=== PATIENT | female | born 1955 | race Caucasian/White ===

== ENCOUNTER 2017-06-24 14:26 | Emergency (ER) | payer BC ==
[~2017-06-24] VITALS: Ht 160 cm; Wt 90.7 kg
[~2017-06-24 14:26] MED LIST: ATENOLOL25 MG PO; AZITHROMYCIN250 MG PO; BENICAR HCT 401 EACH PO; BENICAR20 MG PO; HYDROCODON-ACE1 EA10 PO; NORCO 5-325 TA1 EACH PO; PERCOCET 5-3251 EACH PO; PREDNISONE20 MG PO; PRILOSEC20 MG PO; PROAIR HFA8.5 GM INH; PROTONIX40 MG PO; SYNTHROID150 MCG PO; ULTRAM50 MG PO
== END 2017-06-24 14:47 | disposition home or self-care (01) ==
LOC: ED 14:26
DX: Z00.8 Encounter for other general examination (principal)

== ENCOUNTER 2018-05-25 18:49 | Emergency (ER) | payer BC ==
[~2018-05-25] VITALS: Ht 160 cm; Wt 90.7 kg
[2018-05-25] MEDS ORDERED: IRBESARTAN-HCT1 EACH PO (19:12)
[2018-05-25] MEDS ORDERED: PYRIDIUM200 MG PO (20:22)
[2018-05-25] MEDS ORDERED: MACROBID 100 M100 MG PO (20:22)
== END 2018-05-25 20:29 | disposition home or self-care (01) ==
LOC: ED 18:49
DX: N39.0 Urinary tract infection, site not specified (principal); I10 Essential (primary) hypertension; E03.9 Hypothyroidism, unspecified; F17.200 Nicotine dependence, unspecified, uncomplicated; Z88.2 Allergy status to sulfonamides; Z88.5 Allergy status to narcotic agent; Z88.0 Allergy status to penicillin; Z88.8 Allergy status to other drugs, medicaments and biological substances; Z79.899 Other long term (current) drug therapy
CPT/HCPCS: 81001; 99283

== ENCOUNTER 2018-05-28 20:07 | Observation (INO) | payer BC ==
[~2018-05-28] VITALS: Ht 160 cm; Wt 94.8 kg
[~2018-05-28 20:07] MED LIST changes: +IRBESARTAN-HCT1 EACH PO; +MACROBID 100 M100 MG PO; +PYRIDIUM200 MG PO; -SYNTHROID150 MCG PO; +SYNTHROID200 MCG PO
--- OUTSIDE RECORDS SUMMARY | 2018-05-28 20:10 | XMS ---
PreManage Notification: MANINDER MONTES Security [employer] Events No recent Security Events currently on file CRITERIA MET - [facility] - 2 Visits in 30 Days CARE PROVIDERS BEVERLY GUTIÉRREZ Physician External Auditor Current PHONE: Unknown MARITZA CHEN [facility] Current PHONE: Unknown Maritza Chen Treatment Current [place] PHONE: Unknown Mauricio has no Care Guidelines for this patient. Daniela VISIT COUNT (12 MO.) 3 NICK Jansen TOTAL 3 NOTE: Visits indicate total known visits. ED/UCC VISIT TRACKING (12 MO.) 05/28/2018 20:08 NICK Mueller [place] TYPE: Emergency COMPLAINT: - SOB 05/25/2018 18:49 N[facility] [place] TYPE: Emergency COMPLAINT: - POSS UTI DIAGNOSES: - Urinary tract infection, site not specified - Essential (primary) hypertension - Allergy status to sulfonamides status - Nicotine dependence, unspecified, uncomplicated - Hypothyroidism, unspecified - Other terminal operations manager (current) drug therapy - Dysuria - Allergy status to other drugs, medicaments and biological substances status - Allergy status to narcotic agent status - Allergy status to penicillin 06/24/2017 14:26 N[facility] [place] TYPE: Emergency COMPLAINT: - L EAR ISSUE DIAGNOSES: - Encounter for other general examination INPATIENT VISIT TRACKING (12 MO.) No inpatient visits to display in this time frame [email or web address]
[2018-05-28] MEDS ORDERED: FLOVENT HFA12 GM INH (20:22)
--- NOTE | 2018-05-28 23:30 | NUR ---
pt ARRIVED ON FLOOR VIA STRETCHER. AMBULATED TO BED. VSS. FAMILY AT BEDSIDE. ASSESSMENT DONE. TEA PROVIDED. AMBULATED TO TOILET AND BACK TO BED. CALL LIGHT WITHIN REACH. NO FURTHER REQUESTS AT THIS TIME.
--- NOTE | 2018-05-29 05:22 | NUR ---
pt RESTED MOST OF SHIFT. ON 2L O2 VIA NC. SBA. INCONT, PAD IN PLACE. IV SL. TOLERATING CARDIAC DIET. SCDS. USES CALL LIGHT APPROPRIATELY.
--- NOTE | 2018-05-29 08:35 | NUR ---
MORNING ASSESSMENT DONE. PATIENT DENIES PAIN OR NAUSEA. PATIENT AMBULATES INDEPENDANTLY TO BATHROOM TO WASH DENTURES. PATIENT UP TO CHAIR FOR BREAKFAST. 2L OXYGEN ON, PATIENT HAS OCCASIONAL PRODUCTIVE COUGH, UPPER EXPIRATORY WHEEZE, LUNG BASES REMAIN DIM.
--- NOTE | 2018-05-29 10:10 | NUR ---
PATIENT ATE 20% OF BREAKFAST, ENDORSES HAVING A POOR APPETITE.
--- NOTE | 2018-05-29 11:13 | NUR ---
PATIENT PLACED ON CONTINUOUS PULSE OX, LONGER O2 TUBING PROVIDED. ENCOURAGED PATIENT TO LEAVE OXYGEN ON.
[2018-05-29] MEDS ORDERED: ATORVASTATIN CA80 MG PO (12:16)
[2018-05-29] MEDS ORDERED: ATENOLOL50 MG PO (12:18)
--- NOTE | 2018-05-29 12:26 | NUR ---
PATIENT UP TO CHAIR, VISITING WITH FAMILY
--- NOTE | 2018-05-29 13:23 | EKG ---
[facility] [address] [facility] [place] [address] Signed Sinus rhythm with occasional premature ventricular complexes Otherwise normal ECG No previous ECGs available Confirmed by NAZIA VILLALOBOS MD ([id number]) on 05/29/2018 1:23:21 PM Electronically Signed By: NAZIA VILLALOBOS MD 05/29/18 1323 PATIENT NAME: MANINDER MONTES Electrocardiogram DATE OF : 51 PHYSICIAN: NAZIA VILLALOBOS MD REPORT #: [id number] REPORT IS CONFIDENTIAL AND NOT TO BE RELEASED WITHOUT AUTHORIZATION
[2018-05-29] MEDS ORDERED: WOMEN'S 50 PLU1 EACH PO (14:04)
--- NOTE | 2018-05-29 14:04 | NUR ---
MED REC COMPLETE
--- NOTE | 2018-05-29 14:06 | NUR ---
PATIENT UP TO CHAIR, WEARING OXYGEN, PULSE OX IS ON.
--- NOTE | 2018-05-29 14:47 | NUR ---
ATTEMPTED TO VISIT PT, ON PHONE. WILL TRY AGAIN
--- NOTE | 2018-05-29 16:23 | NUR ---
PATIENT REMAINS ON 2L OF OXYGEN, PULSE OX, SATS AT 91-92%. PATIENT IS AD ELDER TO BATHROOM TO VOID. APPETITE IS FAIR, LESS THAT USUAL, PER PATIENT. PATIENT HAS PRODUCTIVE COUGH AND HAS TESSALON PEARLS BUT REPORTS THAT THEY DO NOT HELP MUCH. PATIENT BECOMES SOMEWHAT SOB WITH ACTIVITY. PATIENT REPORTS FEELING WORSE AFTER HAVING COUGH SUPPRESSANT.
--- NOTE | 2018-05-29 17:32 | NUR ---
PT PLANS ON RETURNING TO HER HOME WITH HER UPON DC.
--- NOTE | 2018-05-29 19:26 | NUR ---
PATIENT SAID SHE HAD TO MANY VISITORS TO TAKE A SHOWER AND SHE SAID SHE MIGHT TOMORROW.
--- NOTE | 2018-05-29 19:30 | NUR ---
REPORT RECEIVED, PT RESTING IN BED VISITING WITH FAMILY. RT IN ROOM, PT HAS BEEN TITRATED OFF OF OXYGEN ON CPOX, O2 SAT 91-92%, NO C/O SOB/CP, NO REQEUSTS AT THIS TIME, CALL LIGHT WITHIN REACH. FALL PRECAUTIONS IN PLACE.
--- NOTE | 2018-05-29 20:56 | NUR ---
IN ROOM TO ADMIN SCHEDULED MEDS, PT AOX4, APPROPRIATE, SHIFT ASSESSMENT COMPLETE. LS IN UPPER LOBES HAVE FAINT EXP WHEEZE, DIMINISHED LOWER LOBES BILATERALLY. PT ON RA, O2 SAT 90%, NO C/O SOB/CP, PT REFUSED TO TAKE HER TESSALON PEARLS STATING THAT IT "MADE ME FEEL WORSE". CMS INTACT, CAP REFILL WNL, VSS, PT DENIES ANY REQUESTS AT THIS TIME, CALL LIGHT WITHIN REACH, EDUCATION REGARDING MEDICATIONS GIVEN, QUESTIONS ANSWERED.
--- NOTE | 2018-05-29 22:00 | NUR ---
PT GIVEN SCHEDULED MEDS, TOLERATED WELL, PT ON 1LNC, TOLERATING WELL, O2 SAT 96%, NO C/O SOB/CP, PT DENIES ANY NEEDS AT THIS TIME, IV SL, FLUSHES WELL. CALL LIGHT WITHIN REACH. FAMILY AT BEDSIDE. FALL PRECAUTIONS IN PLACE.
--- NOTE | 2018-05-29 22:25 | NUR ---
vital signs and I&Os are complete. patient didnt need anything at this time.
--- NOTE | 2018-05-30 | NUR ---
PT RESTING IN BED, EYES CLOSED, BREATHS EVEN, UNLABORED, ON 1LNC, O2 SAT 93%, NO REQUESTS AT THIS TIME, CALL LIGHT WITHIN REACH, FALL PRECAUTIONS IN PLACE.
--- NOTE | 2018-05-30 02:38 | NUR ---
PT RESTING IN BED, EYES CLOSED, BREATHS EVEN, UNLABORED, PT DENIES ANY SOB/CP, O2 SAT NOTED TO BE 85% ON 1LNC, PT'S O2 TITRATED UP TO 2LNC, PT'S O2 SAT NOW 93% ON 2LNC, HR 95. PT CONTINUES TO HAVE DRY NONPRODUCTIVE COUGH, LS EXP. WHEEZES THROUGHOUT, FAINT WHEEZES IN RIGHT SIDE. NO REQUESTS AT THIS TIME, CALL LIGHT WITHIN REACH.
--- NOTE | 2018-05-30 04:30 | NUR ---
PT RESTING IN BED, NO REQUESTS AT THIS TIME, ON 2LNC, O2 SAT 93%, CALL LIGHT WITHINR REACH, FALL PRECAUTIONS IN PLACE.
--- NOTE | 2018-05-30 06:18 | NUR ---
PT RESTING IN BED, NO REQUESTS AT THIS TIME, MORNING MEDS ADMINSITERED, TOLERATED WELL. PT GIVEN HOT TEA AND HONEY. CALL LIGHT WITHIN REACH. FALL PRECAUTIONS IN PLACE. IV SL, FLUSHES WELL.
--- NOTE | 2018-05-30 06:19 | NUR ---
PT AOX4 THIS SHIFT, APPROPRIATE, PT ON 2LNC THIS SHIFT WHILE SLEEPING, ON CPOX, O2 SAT 93%, PT INDEPENDENT IN ROOM/SBA. TOLERATING WELL. VSS, URINE OUTPUT QS. PT HAS URGENCY INCONTINENCE AND WEARS JONATHAN PADS FOR COMFORT, LS REMAIN TO HAVE SOME EXP. WHEEZES SCATTERED THROUGHOUT, PT CONTINUES TO HAVE DRY NONPRODUCTIVE COUGH. SCHEDULED NEBS ADMINISTERED PER EMAR.
--- NOTE | 2018-05-30 06:55 | NUR ---
BEDSIDE HANDOFF REPORT RECEIVED FROM COMMISSIONING SPECIALIST RN. PT SITTING IN CHAIR. PT DENIES NEEDS AT THIS TIME.
--- NOTE | 2018-05-30 07:45 | NUR ---
PT RESTING IN BED, SON AT BEDSIDE. PT DENIES PAIN. PT REPORT OF SOB WITH ACTIVITY. LUNG SOUNDS WITH EXPIRATORY WHEEZE THROUGHOUT, 92% ON 2L NC, DISCUSSED PLAN TO WEAN O2. PT BOWEL TONES ACTIVE, DENIES NAUSEA, ENCOURAGED TO EAT BREAKFAST WITH PO ABX. CMS INTACT, WITHOUT EDEMA. SALINE LOCKED. PT REFUSED TESSALON PERLE. DISCUSSED PLAN OF CARE FOR THE DAY. PT DENIES OTHER NEEDS AT THIS TIME.
--- NOTE | 2018-05-30 10:16 | NUR ---
PATIENT SITTING IN CHAIR WORKING ON DRINKING TEA. SON IS VISITING. HAS A BAGEL BUT HASN'T EATEN IT YET. SHE STATES SHE HAS HAD SOME WEIGHT GAIN DUE TO POOR FOOD CHOICES LIKE HIGHER CALORIE CONVENIENCE FOODS THAT SHE CAN JUST GRAB AND GO. SHE DRINKS 1-3 SORBENOT COFFEE DRINKS A DAY. DISCUSSED HEALTHY EATING TIPS SUCH MAKING SURE SHE EATS SOME PROTEIN, FRUITS AND VEGGIES, AND WHOLE GRAINS. ALSO DISCUSSED DRINKING ENSURE OR BOOST IF SHE HAS A POOR APPETITE. SNACK IDEAS ALSO PROVIDED ON THE HANDOUT "USING NUTRITION TO HELP YOU BREATHE EASIER." ON A CARDIAC DIET HERE. NO FURTHER NUTRITION INTERVENTION AT THIS TIME. WILL REMAIN AVAILABLE IF NEEDED.
--- NOTE | 2018-05-30 12:30 | NUR ---
I HELPED WASH THE PATIENT BACK AND ALSO STOOD BY IN CASE SHE NEEDED ANY HELP.
--- NOTE | 2018-05-30 13:50 | NUR ---
PT RESTING IN BED. PT ON 1L NC, O2 SATS 91%, LUNG SOUNDS COARSE THROUGHOUT. PT STATES COUGHING IS IMPROVED SLIGHTLY. PT REPORT OF SOB WITH SHOWER. IV SOLUMEDROL GIVEN PER ORDER, IV PATENT, SALINE LOCKED. DISCUSSED DULCE APPLE WITH PT, PT STATES SHE FELT LIKE HER COUGH WAS WORSE AFTER TAKING, EDUCATION PROVIDED, PT CONTINUES TO DECLINE TAKING THEM. DISCUSSED PLAN TO WALK IN [place]. PT DENIES OTHER NEEDS AT THIS TIME.
--- NOTE | 2018-05-30 16:15 | NUR ---
PT WALKING IN [place] WITH NURSE AIDE. PT O2 SATS 84% ON 2L NC, INCREASED TO 3L, PT STATES SHE FEELS SOB BUT NOT BAD WITH HER SHOWER. PT ABLE TO AMBULATE BACK TO ROOM, COMPLETED ONE LAP. O2 SATS 88% UPON ARRIVING BACK TO ROOM, WILL CONTINUE TO WEAN TOLERATED. MD NOTIFIED OF OXYGEN REQUIREMENTS DURING ACTIVITY.
--- NOTE | 2018-05-30 17:31 | NUR ---
PATIENT SITTING UP IN BED. VITAL SIGNS AND I&O DONE. CALL LIGHT WITHIN REACH. NO OTHER NEEDS AT THIS TIME
--- NOTE | 2018-05-30 17:36 | NUR ---
PT CONTINUES TO REQUIRE OXYGEN 1-2L AT REST, 3L TO AMBULATE IN [place]. LUNG SOUNDS COARSE WITH OCCASIONAL EXP WHEEZE. SL, IV SOLUMEDROL. TOLERATING CARDIAC DIET, POOR APPETITE. INDEPENDENT IN ROOM. VOIDING QS.
--- NOTE | 2018-05-30 19:18 | NUR ---
PT IN BED NO COMPLATINTS OF PAIN OR NAUSEA AT THIS TIME. AT BED SIDE
--- NOTE | 2018-05-30 21:19 | NUR ---
CRIB CLERK ROUNDING. PT STATES THAT SHE FEELS JITTERY, BELIEVES THAT SHE MAY HAVE DRANK TOO MUCH COFFEE. PT DENIES NEEDS AT THIS TIME, CALL LIGHT IN REACH.
--- NOTE | 2018-05-31 00:17 | NUR ---
PT ON 1 L O2 SAT93%, RESTING IN BED WITH HOB ELEVATED. TV ON. CALL LIGHT IN REACH. NO SIGNS OF DISTRESS.
--- NOTE | 2018-05-31 04:53 | NUR ---
PT WALKED EARLY IN SHIFT, 3L NC @88%. STABLE ON 1 L @ 93% AT REST. LAST BM 05-30-18. PLAN IS TO CONTINUE EFFORTS TO TITRATE O2 DOWN. UO QS. LUNG SOUND COARSE WITH EXPIRATORY WHEEZE.PT ABLE TO REST WELL ALL NIGHT, NO COMPLAINT OF PAIN OR DISCOMFORT
--- NOTE | 2018-05-31 07:39 | NUR ---
0715: Report recieved from Dipti VAZQUEZ. Pt sleeping at this time. Sat 93% on 1.5l while sleeping. Call harman within reach.
--- NOTE | 2018-05-31 09:27 | NUR ---
PT RESTING AT THE BEDSIDE WITH NO COMPLAINTS AT THIS TIME. SAT IS 93% ON 1L WITH A RR OF 22. COPD INFORMATION GIVEN BOTH VERBAL AND WRITTEN TO THE PT. PT ENCOURAGED TO USE HER IS WHICH SHE STATES SHE HAS BEEN USING.
--- NOTE | 2018-05-31 10:42 | NUR ---
DR VEGA TO THE BEDSIDE SPEAKING WITH THE PT. PT STATES HER BREATHING FEELS "OKAY". SAT 91% ON 1L AT THIS TIME. PT ENCOUARGED TO DEEP BREATH AND TO USE HER IS WHICH SHE DID AT THIS TIME. PT ALSO ENCOUARGED TO WALK TODAY WHICH SHE STATES SHE WILL DO. PT'S ONLY COMPLAINT RIGHT NOW IS FEELING "SHACKY" WHICH SHE STATES SHE UNDERSTANDS IS RELATED TO THE PREDNISONE.
--- NOTE | 2018-05-31 12:51 | NUR ---
Pt sitting on the bedside with no complaints.
--- NOTE | 2018-05-31 13:49 | NUR ---
PT SITTING AT THE BEDSIDE PLAYING A COMPUTER GAME. SHE DENIES ANY SOB AND HER SAT IS 90% ON 1L AT THIS TIME.
--- NOTE | 2018-05-31 13:53 | NUR ---
Pt states that her nostrils are getting sore due to the o2. She already has humidity on the o2, pt was given vasaline which she states seems to help.
--- NOTE | 2018-05-31 15:48 | NUR ---
SAT 92% ON 1L AND SHE DENIES ANY SOB. PT REQUESTS TO GO FOR A WALK.
--- NOTE | 2018-05-31 15:55 | NUR ---
I walked with the pt down and [place] and back and her sat decreased to 86% on 1l. Her sat increased to 91% after sitting down for less than a minute. Pt did become SOB with the short walk and states her breathing is "normal" after about a minute as well.
--- NOTE | 2018-05-31 16:11 | NUR ---
DR VEGA WAS UPDATED TO THE PT'S RESP STATUS WITH HER WALK.
--- NOTE | 2018-05-31 17:56 | NUR ---
Pt states she feels a little sob with activity and denies any at rest, sat now is 93% on 1l.
--- NOTE | 2018-05-31 18:16 | NUR ---
Pt becomes sob with activity and her sat decreased to 86% on 1l with walking. Her sat quickly increased back to the low 90's at rest and her sob quickly resolved. Pt was given COPD information today and was educated in regards to the damage to her lungs with smoking. Lung sounds are coarse and she has a cont pulse ox on. She had a normal BM today. CMC and BMP are being drawn tomorrow.
--- NOTE | 2018-05-31 19:49 | NUR ---
PATIENT REMAINS ON 2L/NC, AT BEDSIDE, PATIENT HAS HER SMALL DOG VISITING. WATCHING TV. CALL LIGHT IN REACH.
--- NOTE | 2018-05-31 21:46 | NUR ---
PATIENT RESTING IN BED WATCHING TV. 92% ON 1L/NC. VISITING WITH FAMILY. SCD'D PLACED ON PATIENT FOR BEDTIME. FRESH ICE WATER GIVEN. PATIENT DENIES ANY PAIN AT THIS TIME. CALL LIGHT IN REACH.
--- NOTE | 2018-05-31 22:44 | NUR ---
DRAPERY HEAD FORMER ROUNDING NOTE. PT SITTING AT EDGE OF BED USING COMPUTER. PT DENIES NEEDS AT THIS TIME. STATES THAT SHE FEELS "PRETTY GOOD". CALL LIGHT IN REACH.
--- NOTE | 2018-06-01 00:08 | NUR ---
PATIENT AWAKE WATCHING TV AND IS GETTING A NEB TREATMENT. CALL LIGHT IN REACH.
--- NOTE | 2018-06-01 02:16 | NUR ---
PATIENT RESTING QUIETLY ON RIGHT SIDE. REMAINS ON 1L/NC. RESPIRATIONS REGULAR AND EVEN AT 16. CALL LIGHT IN REACH. O2 SATS 95% AND HR=66.
--- NOTE | 2018-06-01 04:08 | NUR ---
PATIENT SLEEPING QUIETLY ON HER LEFT SIDE, RESPIRATIONS REGULAR AND EVEN AT 18, ON 2L/NC, SATS 94% AND HR=62.
--- NOTE | 2018-06-01 05:02 | NUR ---
PATIENT HAD A TRIAL ON ROOM AIR AT THE BEGINING OF THE SHIFT, BUT COULD NOT KEEP HER SATS OUT OF THE MID 80'S. PATIENT PLACED ON 1L/NC AND SATS HAVE USUALLY REMAIN AT 92% OR HIGHER ON 1L. PATIENT HAS HAD NO C/O PAIN. PATIENT AWAKE THE FIRST HALF OF THE SHIFT, AND THEN WENT TO SLEEP, RESPIRATIONS REGULAR AND EVEN AT A RATE OF 16-18, WITH EYES CLOSED UP TO THIS TIME.
--- NOTE | 2018-06-01 07:13 | NUR ---
0700 bedside report recieved from Munir VAZQUEZ. Pt sitting at the bedside and she denies any SOB at this time, sat is 91% on 1l via NC. Pt denies any problems other than that she is getting board with being here.
--- NOTE | 2018-06-01 07:42 | NUR ---
PT RESTING IN BED, SHE DEINES ANY SOB AT THIS TIME. SAT IS 93% ON 1L, SCDS ARE ON AND RUNNING.
--- NOTE | 2018-06-01 08:35 | NUR ---
Pt sitting up in her chair eating breakfast and visiting with her family.
--- NOTE | 2018-06-01 09:51 | NUR ---
PT WALKING IN THE [place] WITH RT AT THIS TIME.
[2018-06-01] MEDS ORDERED: DOXYCYCLINE HY100 MG PO (10:39)
[2018-06-01] MEDS ORDERED: NICORETTE4 M2 BUCCAL (10:40)
[2018-06-01] MEDS ORDERED: PREDNISONE20 MG PO (10:42)
--- NOTE | 2018-06-01 11:28 | NUR ---
Pt being dc'd to home with her family. She denies any current SOB and her sat on RA is 95% at this time. IV in her left hand dc'd tip intact. Dc instructions given with good understanding stated.
== END 2018-06-01 11:50 | disposition home or self-care (01) ==
LOC: ED 20:07 → MS 20:09
PROVIDERS: ADMIT Internal Medicine
DX: J44.1 Chronic obstructive pulmonary disease with (acute) exacerbation (principal); J96.01 Acute respiratory failure with hypoxia; I10 Essential (primary) hypertension; E03.9 Hypothyroidism, unspecified; F17.210 Nicotine dependence, cigarettes, uncomplicated; Z79.2 Long term (current) use of antibiotics; Z79.51 Long term (current) use of inhaled steroids; Z79.899 Other long term (current) drug therapy; Z88.1 Allergy status to other antibiotic agents; Z88.5 Allergy status to narcotic agent; Z88.0 Allergy status to penicillin; Z88.2 Allergy status to sulfonamides
CPT/HCPCS: 36415; 71045; 80048; 80053; 83735; 83880; 84484; 85025; 87502; 93005; 93010; 94640; 94645; 94761; 94762; 96374; 96376; 99285-25; 99406; G0378; J2920; J2930; J7512

== ENCOUNTER 2018-09-07 10:24 | Inpatient (IN) | payer BC ==
[~2018-09-07] VITALS: Ht 160 cm; Wt 94.8 kg
[~2018-09-07 10:24] MED LIST changes: +ATENOLOL50 MG PO; +ATORVASTATIN CA80 MG PO; +DOXYCYCLINE HY100 MG PO; +FLOVENT HFA12 GM INH; +NICORETTE4 M2 BUCCAL; +WOMEN'S 50 PLU1 EACH PO
--- OUTSIDE RECORDS SUMMARY | 2018-09-07 10:26 | XMS ---
PreManage Notification: MANINDER MONTES Security Electronic Warfare Operator Events No recent Security Events currently on file CRITERIA MET - Group Notification CARE PROVIDERS BEVERLY GUTIÉRREZ Physician [place] Current PHONE: Unknown MARITZA CHEN [facility] Current PHONE: Unknown Maritza Chen Treatment Current MA PHONE: Unknown Mauricio has no Care Guidelines for this patient. Daniela VISIT COUNT (12 MO.) [address] [facility] TOTAL 3 NOTE: Visits indicate total known visits. ED/UCC VISIT TRACKING (12 MO.) 09/07/2018 10:24 N[facility] [place] TYPE: Emergency COMPLAINT: - TROUBLE BREATHING 05/28/2018 20:08 NICK uMeller [place] TYPE: Emergency COMPLAINT: - SOB 05/25/2018 18:49 NIK[facility] [place] TYPE: Emergency COMPLAINT: - POSS UTI DIAGNOSES: - Urinary tract infection, site not specified - Essential (primary) hypertension - Allergy status to sulfonamides status - Nicotine dependence, unspecified, uncomplicated - Hypothyroidism, unspecified - Other infant lead teacher (current) drug therapy - Dysuria - Allergy status to other drugs, medicaments and biological substances status - Allergy status to narcotic agent status - Allergy status to penicillin INPATIENT VISIT TRACKING (12 MO.) 05/28/2018 20:09 NICK [facility] [place] TYPE: Observation COMPLAINT: - COPD EXACERBATION DIAGNOSES: - Acute respiratory failure with hypoxia - Hypothyroidism, unspecified - Nicotine dependence, cigarettes, uncomplicated - Allergy status to sulfonamides status - Allergy status to other antibiotic agents status - Shortness of breath - Allergy status to penicillin - Other senior living (current) drug therapy - Chronic obstructive pulmonary disease with (acute) exacerbation - Essential (primary) hypertension - Allergy status to narcotic agent status - senior care (current) use of inhaled steroids - senior care (current) use of antibiotics [email or web address]
--- NOTE | 2018-09-07 14:25 | EKG ---
[facility] [address] [facility] [place] [address] Signed Sinus tachycardia with occasional premature ventricular complexes Nonspecific T wave abnormality Abnormal ECG Confirmed by NAZIA VILLALOBOS MD ([id number]) on 09/07/2018 2:25:07 PM Electronically Signed By: NAZIA VILLALOBOS MD 09/07/18 1425 PATIENT NAME: MANINDER MONTES Electrocardiogram DATE OF : 51 PHYSICIAN: NAZIA VILLALOBOS MD REPORT #: [id number] REPORT IS CONFIDENTIAL AND NOT TO BE RELEASED WITHOUT AUTHORIZATION
--- NOTE | 2018-09-07 15:12 | NUR ---
Pt arrived on unit from ED via stretcher. Pt walked to bed from stretcher ALVAREZ and tachypnic on 4L NC. Pt sitting up in bed at 90 degrees. exp wheezes throught lungs and very little air movement auscultated. Pt put on heart monitor and shows sinus tach. pt denies needs at this time. family at bedside during admission. all questions answered. will continue to monitor
--- NOTE | 2018-09-07 18:28 | NUR ---
pt resting in bed VSS denies needs at this time. will continue to monitor
--- NOTE | 2018-09-07 20:00 | NUR ---
RECEIVED REPORT AT 1900, FOUND PT IN BED SLEEPING WITH AT BEDSIDE. ALL LOBES ARE CLEAR BUT HAVE LITTLE MOVEMENT. PT DENIES SOB, NO PERIPHERAL EDEMA NOTED, +5 STRENGTH OVERALL. NO NEW CONCERNS NOTED SO FAR. PT JUST STATED THAT SHE WAS VERY TIRED.
--- NOTE | 2018-09-07 21:45 | NUR ---
PT IS AWAKE IN ROOM, FAMILY AT BEDSIDE. PT DENIES SOB. NO NEW CONCERNS NOTED.
--- NOTE | 2018-09-07 21:45 | NUR ---
PT AT THIS TIME IS HUNGRY AND WOULD LIKE TO HAVE SOME SOUP. PAIN IS STILL WELL CONTROLLED, NO NEW CONCERNS NOTED AT THIS TIME, WILL CONTINUE TO MONITOR.
--- NOTE | 2018-09-07 23:00 | NUR ---
PT AT THIS TIME IS SLEEPING. NO NEW CONCERNS NOTED AT THIS TIME.
--- NOTE | 2018-09-08 00:09 | NUR ---
PT AT THIS TIME IS UP AND SITTING UP. RT DID TREATMENT, ALL LOBES AT THIS TIME HAVE SOME EXIPATORY WHEEZING PRESENT PT DENIES SOB. PT AFTER EACH SVN GETS TACHY WHICH SUBSIDES AFTER A WHILE. PT COMPLAINED OF A DRY AND SORE THROAT. A TEA WITH HONEY WAS OFFERED AND PT ACCEPTED. WILL CONTINUE TO MONITOR. NO OTHER NEW CONCERN NOTED AT THIS TIME.
--- NOTE | 2018-09-08 01:45 | NUR ---
LAB IN TO DRAW BLOOD. LAB DRAWN FROM SL. PT ENCOURAGED TO VOID IN URINAL BUT NO RESULTS AT THIS TIME.
--- NOTE | 2018-09-08 01:56 | NUR ---
PT AT THIS TIME IS SLEEPING, V/S ARE WDL.
--- NOTE | 2018-09-08 02:39 | NUR ---
PT STILL VERY FREQUENTLY CALLS FOR ALL SORTS OF THINGS. PT STATED THAT HER WHOLE BODY WAS TINGLING. NEURO ASSESSEMENT WAS WDL AND BOTH PEDIS PULSES ARE +2 WITH LEGS WARM TO TOUCH AND CAP REFILL < 2EC. WILL CONTINUE TO MONITOR.
--- NOTE | 2018-09-08 04:12 | NUR ---
PT WAS WOKEN UP FOR ASSESSMENT. RUL AND RML IS DIMINISHED STILL BUT HAVE MORE MOVEMENT PRESENT. RLL AND LLL ARE STILL DIMINISHED. ALEJO WAS COARSE. PT STILL DENIES SOB. NO OTHER NEW FINDINGS WERE NOTED WITH THIS ASSESSMENT. RT WAS CALLED FOR TREATMENT. V/S ARE WDL BUT RR ARE IN THE 20'S.
--- NOTE | 2018-09-08 05:16 | NUR ---
PT AT THIS TIME IS SLEEPING. NO NEW CONCERNS NOTED.
--- NOTE | 2018-09-08 06:35 | NUR ---
PT WAS STILL SLEEPING UNTIL WOKEN UP FOR RETAIL DEPARTMENT RESET MEDS. PT STILL MILDLY TACHY, OTHER V/S WDL. PT HAS REMAINED ON 4L O2 NC ALL NIGHT. PT DID COMPLAIN OF A SORE THROAT AND A TEA WAS GIVEN. THIS HELPED LAST NIGHT. NO NEW CONCERNS NOTED SO FAR.
--- NOTE | 2018-09-08 07:30 | NUR ---
REPORT RECIEVED. PATIENT IS AWAKE, C/O OF SORE THROAT. TAKING COLD AND HOT LIQ. TALKED WITH PATIENT ABOUT PLAN OF CARE FOR DAY. IS UNDERSTANDING.
--- NOTE | 2018-09-08 08:00 | NUR ---
ASSESSMENT DONE. SITTING AT BEDSIDE READY FOR BREAKFAST. ENC USE OF IS. IS SHAKEY. AMBULATED TO BR TO VOID 100 ML OF CLEAR YELLOW URINE.
--- NOTE | 2018-09-08 08:35 | NUR ---
TYLENOL 500 MG PO GIVEN FOR SORE THROAT.
--- NOTE | 2018-09-08 09:15 | NUR ---
TOOK BREAKFAST WELL.
--- NOTE | 2018-09-08 10:00 | NUR ---
NAPPING, NO DISTRESS NOTED. O2 REMIANS AT 2 L NC.
--- NOTE | 2018-09-08 11:00 | NUR ---
FAMILY MEMBERS ARE IN ROOM. PATIENT DENIES PROBLEMS.
--- NOTE | 2018-09-08 13:30 | NUR ---
TOOK CHICKEN NOODLE SOUP FOR LUNCH. C/O FEELING SHAKEY. DENIES NAUSEA, OR PAIN. SAT-95 ON 2L NC. WILL BE TRANSFERRED TO MEDICAL FLOOR THIS AFTERNOON. REMAINS HOUSE CONV AT THIS TIME.
--- NOTE | 2018-09-08 13:45 | NUR ---
REPORT GIVEN TO Estrellita AUGUSTE RN WHO WILL BE TAKING OVE NURSING CARE ON MED-SURG.
--- NOTE | 2018-09-08 14:30 | NUR ---
TO MED-SURG VIA CHAIR.
--- NOTE | 2018-09-08 14:34 | NUR ---
PATIENT TO FLOOR FROM CCU AT 1430. BEDSIDE REPORT FROM DIVINA VAZQUEZ. PLACED DINNER ORDER, AND ADMINISTERED IV SOLUMEDROL. PATIENT SITTING ON BEDSIDE. FULL BODY ASSESMENT DONE. CALL LIGHT WITHIN REACH.
--- NOTE | 2018-09-08 15:22 | NUR ---
PATIENT COMPLAINTS OF SORE THROAT. CALL TO DR. VEGA, NEW ORDER FOR CEPACOL LOZENGE.
--- NOTE | 2018-09-08 16:37 | NUR ---
PATIENT TRANSFERED FROM CCU, [facility] FOR COPD EXACERBATION. ADMINISTERED IV SOLUMEDROL AND PATIENT TITRATED OFF OF 2L OXYGEN TO ROOM AIR. PATIENT HAS ACRYLIC NAILS ON AND SATURATIONS WILL READ ABOUT 88%, HOWEVER TEMPORAL READING IS 98% ON ROOM AIR. PATIENT LIKES TO SIT AT EDGE OF BED. REFUSED SHOWER FOR TODAY BUT WOULD LIKE ONE IN THE MORNING. COMPLAINTS OF SORE THROAT, NEW ORDER FOR CEPACOL LOZENGES. AAOX3. LUNG SOUNDS DIMINISHED THROUGHOUT. USING OCAPELLA AND IS WELL.
--- NOTE | 2018-09-08 19:10 | NUR ---
CHARGE NURSE REPORT RECEIVED. PT SITTING ON EDGE OF BED, VISITING WITH FRIEND.
--- NOTE | 2018-09-08 19:25 | NUR ---
BEDSIDE REPORT RECEIVED FROM OFFGOING RN. PT SITTING UP AT EDGE OF BED VISITING WITH FAMILY. PT DENIES NEEDS AT THIS TIME. CALL LIGHT IN REACH.
--- NOTE | 2018-09-08 22:27 | NUR ---
V/S AND I&O DONE AND CHARTED. ICE WATER GIVEN. NO OTHER NEEDS AT THIS TIME.
--- NOTE | 2018-09-08 22:48 | NUR ---
PT ASSESSMENT COMPLETE. PT SITTING AT EDGE OF BED USING CELL PHONE. PT DENIES NAUSEA OR PAIN. STATES THAT HER THROAT IS SORE AND TIGHT. LOZENGE OFFERED. PT DECLINES. PT STATES THAT SOB IS WELL CONTROLLED AT THIS TIME. TOLERATED RA WELL. LUNG SOUNDS CLEAR/DIM THROUGHOUT. PT REPORTS OCCASIONAL COUGH, NONPRODUCTIVE. BLE'S WITH 1+ PITTING EDEMA. PT STATES THIS IS LIKELY BECAUSE SHE HAS BEEN SITTING WITH FEET IN DEPENDENT POSITION THROUGHOUT THE DAY. PT DENIES FURTHER NEEDS AT THIS TIME. CALL LIGHT IN REACH.
--- NOTE | 2018-09-08 23:45 | NUR ---
PT ASKING FOR MOUTH WASH, STATES THAT SHE HAS A BAD TASTE IN HER MOUTH. MOUTHWASH PROVIDED. PT STATES THAT THROAT FEELS SORE AND NOSE FEELS DRY. PT WOULD LIKE TO TRY A CEPACOL LO[place]. TO BE ADMINSITERED. PT DENIES FURTHER NEEDS AT THIS TIME. CALL LIGHT WITHIN REACH.
--- NOTE | 2018-09-09 04:17 | NUR ---
PT RESTING IN BED WITH EYES CLOSED. RESPIRATIONS EVEN AND UNLABORED. PT APPEARS TO BE SLEEPING, DOES NOT WAKE WHILE WRTIER IN DOORWAY. CALL LIGHT IN REACH.
--- NOTE | 2018-09-09 06:26 | NUR ---
PT ASSESSMENT COMPLETE. PT DENIES PAIN, NAUSEA, OR SOB. STATES THAT THROAT PAIN IS MUCH BETTER. LUNG SOUNDS CONTINUE TO BE DIM THROUGHOUT. PT REPORTS OCCASIONAL NON PRODUCTIVE COUGH THROUGH THE NIGHT. PREVIOUS BLE EDEMA IS RESOLVED THIS AM. PT REQUESTS HOT TEA, PROVIDED. PT DENIES FURTHER NEEDS AT THIS TIEM. CALL LIGHT WITHIN REACH.
--- NOTE | 2018-09-09 07:41 | NUR ---
Pt sitting up in bed on her tablet, alert and oriente x3. Pt denies pain and sob. Personal supplies and call light within reach. No needs at this time. Call light within reach.
--- NOTE | 2018-09-09 08:27 | NUR ---
PATIENT SITTING ON SIDE OF BED. CALL LIGHT IN REACH. NO FURTHER NEEDS AT THIS TIME.
[2018-09-09] MEDS ORDERED: AZITHROMYCIN500 MG PO (10:18)
[2018-09-09] MEDS ORDERED: PREDNISONE20 MG PO (10:21)
--- NOTE | 2018-09-09 10:27 | NUR ---
PATIENT SITTING ON EDGE OF BED, FAMILY IN ROOM. FRESH WATER GIVEN. CALL LIGHT IN REACH. NO FURTHER NEEDS AT THIS TIME.
--- NOTE | 2018-09-09 11:25 | NUR ---
Notified Dr. Altman regarding bp of 86/56 from r d internship and well as most recent bp recheck from myself of 112/49, p93.
== END 2018-09-09 12:10 | disposition home or self-care (01) | DRG 189 ==
LOC: ED 10:24 → CCU 14:04 → MS 09-08 14:30
PROVIDERS: ADMIT Internal Medicine
DX: J96.01 Acute respiratory failure with hypoxia (principal); J44.1 Chronic obstructive pulmonary disease with (acute) exacerbation; J06.9 Acute upper respiratory infection, unspecified; E78.5 Hyperlipidemia, unspecified; I10 Essential (primary) hypertension; E03.9 Hypothyroidism, unspecified; F17.210 Nicotine dependence, cigarettes, uncomplicated; Z91.14 Patient's other noncompliance with medication regimen; Z20.818 Contact with and (suspected) exposure to other bacterial communicable diseases; Z79.51 Long term (current) use of inhaled steroids; Z79.899 Other long term (current) drug therapy; Z88.1 Allergy status to other antibiotic agents; Z88.5 Allergy status to narcotic agent; Z88.0 Allergy status to penicillin; Z88.2 Allergy status to sulfonamides; Z88.8 Allergy status to other drugs, medicaments and biological substances
CPT/HCPCS: 71045; 80053; 82803; 83880; 85025; 93005; 93010; 94640; 94667; 94668; 96374; 99285-25; J1650; J2920; J2930; J7512

== ENCOUNTER 2021-06-28 21:30 | Emergency (ER) | payer MEDICARE ==
[~2021-06-28] VITALS: Ht 160 cm; Wt 94.8 kg
[~2021-06-28 21:30] MED LIST changes: +AZITHROMYCIN500 MG PO
--- OUTSIDE RECORDS SUMMARY | 2021-06-28 21:36 | XMS ---
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 Care History Medical/Surgical 01/07/2019 [facility] - PULMONARY REHAB REFERRAL RECEIVED FROM [facility]. - CHW CONTACTED PCP DR GALEAS TO UPDATE IN REGARDS TO REFERRAL FOR PULMONARY REHAB - PATIENT HAS NOT SEEN PROVIDER SINCE AUGUST 2018. E.D. VISIT COUNT (12 MO.) 2 [facility] TOTAL 2 NOTE: Visits indicate total known visits. ED/UCC VISIT TRACKING (12 MO.) 06/28/2021 21:30 [facility] TYPE: Emergency COMPLAINT: - CHEST PAIN, HIGH BP 05/28/2021 10:56 [facility] [place] TYPE: Emergency COMPLAINT: - BLOOD PRESSURE PROBLEM INPATIENT VISIT TRACKING (12 MO.) No inpatient visits to display in this time frame [email or web address]
[2021-06-28] MEDS ORDERED: LISINOPRIL-HCT1 EAC2 PO (21:46)
[2021-06-28] MEDS ORDERED: VENTOLIN HFA18 GM (21:47)
[2021-06-29] MEDS ORDERED: MECLIZINE HCL25 MG PO (00:04)
[2021-06-29] MEDS ORDERED: TRANSDERM-SCOP1 EACH TD (00:04)
--- NOTE | 2021-06-29 11:44 | EKG ---
[facility] [address] [facility] [place] [address] Signed Normal sinus rhythm Normal ECG No previous ECGs available Confirmed by NAZIA VILLALOBOS MD ([id number]) on 06/29/2021 11:44:00 AM Electronically Signed By: NAZIA VILLALOBOS MD 06/29/21 1144 PATIENT NAME: MANINDER MONTES Electrocardiogram DATE OF : 51 PHYSICIAN: NAZIA VILLALOBOS MD REPORT #: [id number] REPORT IS CONFIDENTIAL AND NOT TO BE RELEASED WITHOUT AUTHORIZATION
== END 2021-06-29 00:27 | disposition home or self-care (01) ==
LOC: ED 21:30
DX: R07.9 Chest pain, unspecified (principal); R00.2 Palpitations; R42 Dizziness and giddiness; I10 Essential (primary) hypertension; E03.9 Hypothyroidism, unspecified; J44.9 Chronic obstructive pulmonary disease, unspecified; Z87.891 Personal history of nicotine dependence; Z88.2 Allergy status to sulfonamides; Z88.5 Allergy status to narcotic agent; Z88.0 Allergy status to penicillin; Z88.1 Allergy status to other antibiotic agents; Z88.8 Allergy status to other drugs, medicaments and biological substances; Z79.899 Other long term (current) drug therapy; Z79.51 Long term (current) use of inhaled steroids
CPT/HCPCS: 36415; 70450; 71045; 80053; 83735; 84484; 85025; 93005; 93010; 99285-25; A9270

== ENCOUNTER 2023-01-17 10:08 | Inpatient (IN) | payer MEDICARE ==
[~2023-01-17] VITALS: Ht 160 cm; Wt 88.8 kg
[~2023-01-17 10:08] MED LIST changes: +LISINOPRIL-HCT1 EAC2 PO; +MECLIZINE HCL25 MG PO; -PROAIR HFA8.5 GM INH; +TRANSDERM-SCOP1 EACH TD; +VENTOLIN HFA18 GM; +VENTOLIN HFA18 GM INH
--- OUTSIDE RECORDS SUMMARY | 2023-01-17 10:14 | XMS ---
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 Care History Medical/Surgical 01/07/2019 [facility] - PULMONARY REHAB REFERRAL RECEIVED FROM [facility]. - CHW CONTACTED PCP DR GALEAS TO UPDATE IN REGARDS TO REFERRAL FOR PULMONARY REHAB - PATIENT HAS NOT SEEN PROVIDER SINCE AUGUST 2018. Daniela VISIT COUNT (12 MO.) 1 [facility] TOTAL 1 NOTE: Visits indicate total known visits. ED/UCC VISIT TRACKING (12 MO.) 01/17/2023 10:08 [facility] TYPE: Emergency COMPLAINT: - DIFFICULTY BREATHING INPATIENT VISIT TRACKING (12 MO.) No inpatient visits to display in this time frame [email or web address]
[2023-01-17 10:27] LABS: BASOPHILS 0.6 % (0-2); EOSINOPHILS 0.5 % (0-6); HEMATOCRIT 47.8 % (35.0-50.0); HEMOGLOBIN 15.8 g/dL (12.0-18.0); LYMPHOCYTES 12.1 % (24-44); MCH 29.4 (27-36); MONOCYTES 4.5 % (0-12); NEUTROPHILS 82.3 % (39-80); PLATELET COUNT 176 K/uL (140-440); RBC 5.37 M/ul (4.3-5.7); RDW 14.8 (10.5-15.0)
[2023-01-17 10:50] LABS: ALBUMIN 3.7 g/dL (3.4-5.0); ALBUMIN/GLOBULIN RATIO 1.12 (1.1-2.4); ANION GAP 11.5 (7-21); BILIRUBIN, TOTAL 0.8 ng/dL (0.2-1.0); BUN/CREATININE RATIO 15.95 (6.0-28.6); CALCIUM 8.3 mg/dL (8.5-10.1); CREATININE, SERUM 0.94 mg/dL (0.55-1.02); POTASSIUM 3.5 mmol/L (3.5-5.1)
[2023-01-17 11:24] LABS: INFLUENZA B NAA NEGATIVE (NEGATIVE); RESPIRATORY SYNCYTIAL VIR NAA NEGATIVE (NEGATIVE)
--- NOTE | 2023-01-17 14:10 | NUR ---
THIS RN DOWN TO ED TO TRANSFER PT TO MED/SURG. IN ROOM 114 PT AMBULATORY FROM STRETCHER TO BED. PT REPORTING NEEDING TO CHANGE PAD. PT AMBULATED FROM BED TO RESTROOM AND BACK TO BED WITH NO ISSUES. RR OF 36 NOTED. VITALS AND BED WEIGHT COMPLETE. QUICK ADMIT COMPLETE. ASSESSMENT COMPLETE. LUNG SOUNDS EXPIRATORY WHEEZE THROUGHOUT ALL LOBED. DIMINISHED IN RLL AND LLL. BOWEL TONES ACTIVE. PT DENIES PAIN AT THIS TIME. RR OF 28 NOTED. PT DENIES FEELING SOB. PT ON 3L NC WITH O2 SATS BETWEEN 93-95% PT EDUCATED TO USE CALL LIGHT IF PT NEEDS ANYTHING. PT VERBALIZES UNDERSTANDING. PT DENIES ANY OTHER NEEDS AT THIS TIME. CALL LIGHT IN REACH.
[2023-01-17 14:23] VITALS: BP 135/68
--- NOTE | 2023-01-17 14:55 | NUR ---
THIS RN NOTIFIED MD OF PTs RR OF 28. MD AWARE. MD TO PLACE NEW ORDERS. RT CALLED.
--- NOTE | 2023-01-17 16:00 | NUR ---
Spoke with Nayeli. She states she lives in a house on [address] with [address]. She live with her spouse, step daughter, and her two children. She has a nebulizer, but does not use any other DME. She does all the cooking, cleaning, and shopping. 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 She plans on dc to home when cleared medically. She states she has medications for her nebulizer.
[2023-01-17 16:06] LABS: PH, VENOUS 7.338 (7.31-7.41)
--- NOTE | 2023-01-17 16:23 | NUR ---
IN TO COMPLETE ADMISSION ASSESSMENT. [facility] IN TO TALK WITH PT. WILL RETURN LATER TO COMPLETE. PT DENIES ANY NEEDS FROM THIS RN. CALL LIGHT IN REACH.
[2023-01-17] MEDS ORDERED: LEVOTHYROXINE175 MCG PO (16:24)
[2023-01-17] MEDS ORDERED: ALBUTEROL2.5 MG/3 M INH (16:25)
--- NOTE | 2023-01-17 16:51 | NUR ---
IN TO COMPLETE ADMISSION ASSESSMENT. PT SITTING UP IN BED. PT RESPONDS WHEN ADDRESSED. ASMISSION ASSESSMENT COMPLETE. PT DENIES ANY OTHER NEEDS AT THIS TIME. CALL LIGHT IN REACH.
[2023-01-17] MEDS ORDERED: MULTI VITAMIN1 EACH PO (17:05)
--- NOTE | 2023-01-17 17:05 | NUR ---
MED REC COMPLETE
--- NOTE | 2023-01-17 17:26 | NUR ---
IN IMAGING HERE TO TAKE PT TO CT. NEW IV STARTED IN RIGHT AC FOR IMAGING TO USE. PT TOLERATED WELL. IMAGING TAKES PT DOWN IN WHEELCHAIR. NO OTHER NEEDS FROM THIS RN.
--- NOTE | 2023-01-17 17:36 | NUR ---
UR NOTE: MCG MET COPD OBSERVATION
[2023-01-17 17:51] VITALS: BP 112/56
--- NOTE | 2023-01-17 18:13 | NUR ---
IN TO ROUND ON PT. PT SITTING ON EDGE OF BED. PT REPORTS BEING DONE WITH DINNER. TRAY REMOVED. I&Os COMPLETE. TEA PROVIDED. PT DENIES ANY OTHER NEEDS AT THIS TIME. CALL IN REACH.
--- NOTE | 2023-01-17 19:15 | NUR ---
PATIENT IN BED WATCHING TV, NO DISTRESS NOTED, NO COMPLAINTS, REPORT PROVIDED BY DAY SHIFT RN, CALL LIGHT WITHIN REACH.
[2023-01-17 20:40] VITALS: BP 127/50
--- NOTE | 2023-01-17 20:50 | NUR ---
PATIENT CONTINUES WATCHING TV, VSS, LUNGS WITH EXP WHEEZE AND DECREASED BREATH SOUNDS, RT IN FOR PULMONARY CARE. OXYGEN ON AT 3L/NC, PATIENT STATES SHE IS STARTING TO FEEL BETTER, DENIES PAIN, COMPLAINING OF RIGHT AC SALINE LOCK HURTING REALLY BAD WHEN SHE BENDS HER ARM AND REQUEST IT BE REMOVED. SITE D/C'D INTACT PER PATIENT REQUEST. DENIES INCREASED SOB OR CP. CALL LIGHT IN REACH AND ENCOURAGE PATIENT TO CALL IF ANYTHING NEEDED.
--- NOTE | 2023-01-17 21:13 | EKG ---
[facility] [address] [facility] [place] [address] Signed Sinus tachycardia Nonspecific T wave abnormality Abnormal ECG When compared with ECG of 28-JUN-2021 21:34, Nonspecific T wave abnormality now evident in Inferior leads Nonspecific T wave abnormality now evident in Lateral leads Confirmed by Vic Guerrero MD () on 01/17/2023 9:13:35 PM Electronically Signed By: VIC GUERRERO MD 01/17/232112 PATIENT NAME: MANINDER MONTES Electrocardiogram DATE OF : 51 PHYSICIAN: VIC GUERRERO MD REPORT #: [id number] REPORT IS CONFIDENTIAL AND NOT TO BE RELEASED WITHOUT AUTHORIZATION
--- NOTE | 2023-01-17 23:32 | NUR ---
PATIENT WITH LIGHTS ON, WATCHING TV, COMFORATBLE, NO NOTED RESP DISTRESS, CALL LIGHT IN REACH.
[2023-01-18] VITALS (7 sets, daily range): BP systolic 121–151; BP diastolic 57–72
--- NOTE | 2023-01-18 01:04 | NUR ---
PATIENT STILL AWAKE, HAVING DIFFICULTY FALLING A SLEEP. GIVEN 3MG MELATONIN. VSS REMAIN STABLE, PATIENT SITTING UP AT EDGE OF BED PLAYING A GAME ON HER PHONE WITH NO NOTED SOB. HAS BEEN UP TO BR AND DOES HAVE SOB WITH EXERTION AND VARILY QUICKLY RECOVERS AT REST. LUNGS REMAIN DIMINISHED AND PATIENT HAVING PRODUCTIVE COUGH OF THICK YELLOWISH SPUTUM. CALL LIGHT IN REACH. PATIENT WITHOUT ANY REQUEST OR COMPLAINTS.
--- NOTE | 2023-01-18 03:48 | NUR ---
Patient still awake, has stuffed up nose, notified RT to come do breathing tx. they placed patient on mask due to stuffed up noise, worked with some deep breathing. Patient sitting up at bedside and states the mask does help. lights remain on and call within reach.
--- NOTE | 2023-01-18 04:05 | NUR ---
rapid response called after cpox alarm showed spo2 at 71%. pt recently rounded on by primary rn/rt and was wnl on 5loxymask.rt quickly in room along with general warehouse worker minal. rr 32-36, labored. pt had gotten up oob and apparently had accidently pulled her o2 tubing from the wall upon assessment. tubing plugged back in wall and pt titrated by rt to 15loxymask. 0407: spo2 88%, hr 114. bp 144/71, map of 79. 0410: pt titrated by rt back down to 5loxymask, spo2 93%, hr 104. rr now 19-20.pt reports she is "felling better". no distress noted at this time, pt remains sitting on edge of bed. pt educated to use call light before getting oob, pt verbalized understanding. dr castellanos made aware via phone at [phone] by primary rn darrell. rapid response concluded, md did not come to floor d/t rapid response resolving-no further interventions needed.
--- NOTE | 2023-01-18 04:14 | NUR ---
CALLED MD WITH UPDATE ON PATIENT, ORDER GIVEN FOR SUDAFED. DURING THIS TIME PATIENT'S PULSE OX ALARM WENT OFF, UPON ENTER THE ROOM PATIENT WAS IN RESP DISTRESS, STATING I CAN'T BREATH. O2 SATS 72%. RAPID RESPONSE CALLED AND PATIENT STATED SHE HAD GOTTEN UP TO BATHROOM. NOTED BY RN THAT OXYGEN WAS DISCONNECTED, ONCE REPLACED AND O2 AT 15LITERS PATIENT QUICKLY CAME UP TO 90'S. O2 THEN RETURNED TO 5 LITERS. RT PLACED A LONGER CORD ON OXYGEN AND PATIENT INSTRUCTED TO CALL WHEN GETTING UP. MD NOTIFIED OF ABOVE. NO NEW ORDERS. PATIENT SITTING AT EDGE OF BED FEELING BETTER, NO RESP DISTRESS, CALL LIGHT IN REACH.
--- NOTE | 2023-01-18 04:52 | NUR ---
patient given sudafed. patient now getting into bed. HOB up. Attempting to get some rest. Resp rate even, unlabored, continous pulse ox on with sats >92%.
--- NOTE | 2023-01-18 05:14 | NUR ---
patients o2 sats @ 98% decreased oxygen requirements back down from 5 liters to 3 liters. will continue to monitor. patient closing eyes and trying to rest. call light in reach.
[2023-01-18 05:50] LABS: BASOPHILS 0.1 % (0-2); HEMATOCRIT 47.8 % (35.0-50.0); HEMOGLOBIN 15.6 g/dL (12.0-18.0); LYMPHOCYTES 6.3 % (24-44); MCH 29.1 (27-36); MCHC 32.7 g/dl (30-36); MCV 88.9 fl (81-99); MONOCYTES 4.5 % (0-12); NEUTROPHILS 89.1 % (39-80); PLATELET COUNT 177 K/uL (140-440); RBC 5.38 M/ul (4.3-5.7); RDW 14.9 (10.5-15.0)
[2023-01-18 06:06] LABS: ALBUMIN 3.7 g/dL (3.4-5.0); ALBUMIN/GLOBULIN RATIO 1.09 (1.1-2.4); ANION GAP 12.8 (7-21); BILIRUBIN, TOTAL 0.6 ng/dL (0.2-1.0); BUN/CREATININE RATIO 16.04 (6.0-28.6); CALCIUM 8.4 mg/dL (8.5-10.1); CREATININE, SERUM 0.81 mg/dL (0.55-1.02); MAGNESIUM 1.9 mg/dL (1.8-2.4); PHOSPHORUS, INORGANIC 4.5 mg/dL (2.5-4.9); POTASSIUM 3.8 mmol/L (3.5-5.1); PROTEIN, TOTAL 7.1 g/dL (6.4-8.2)
--- NOTE | 2023-01-18 06:18 | NUR ---
Patient is finaaly resting with eyes closed, hob elevated, oxygen on at 3 liters keeping sats >92%. no resp distress noted, appears comfortable, call light in reach.
--- NOTE | 2023-01-18 07:20 | NUR ---
REPORT RECEIVED FROM TAYLOR VILLAREAL. PT LAYING IN BED SEMI-FOWLERS WITH EYES CLOSED. RR EVEN BUT LABORED. PT ALLOWED TO REST IT WAS REPORTED PT DID NOT GET MUCH SLEEP LAST NIGHT. CALL LIGHT IN REACH.
--- NOTE | 2023-01-18 09:31 | NUR ---
IN TO ADMINISTER MEDICATIONS, SEE MAR. PT TAKES PO MEDICATION WITH NO ISSUES. ASSESSMENT COMPLETE. LUNG SOUNDS DIMISHED THROUGHOUT ALL LOBES. WHEEZE NOTED. BOWEL TONES ACTIVE. PT DENIES PAIN AT THIS TIME. RR RATE OF 32 NOTED WHILE PT SITTING ON EDGE OF BED. O2 SATS AT 90% ON 5L OXYMASK. WHEN ASKED IF PT FEELS SOB PT STATES "NO, NOT TOO BAD." TEA PROVIDED. PT DENIES ANY OTHER NEEDS AT THIS TIME. CALL LIGHT IN REACH.
--- NOTE | 2023-01-18 09:42 | NUR ---
THIS RN NOTIFIED MD THAT PT RR OF 32 ON 5L OXYMASK WITH O2 SATS IN 90%. MD AWARE, NO NEW ORDERS.
--- NOTE | 2023-01-18 10:39 | NUR ---
EXERCISED MINISTRY OF PRESENCE PT TALKED OF HEALTH JOURNEY. PT DECLINED BEDSIDE PRAYER. GAVE ACTIVITY BOOK WITH COLORED PENCILS AND CRAYONS. PRAYED SILENTLY FOR RELIEF FROM DISCOMFORT AND ONGOING BLESSING.
--- NOTE | 2023-01-18 10:59 | NUR ---
UR NOTE: MCG MEETS COPD (ISC) INPATIENT GL DAY 1
--- NOTE | 2023-01-18 11:18 | NUR ---
THIS RN AND HUNTER RN IN TO ROUND ON PT. PT SITTING ON EDGE OF BED. PT REPORTING TOILETING NEEDS. O2 BUMPED TO 9L OXYMASK WITH AMBULATION AND O2 SATS 88-90%. VOID NOTED. NEW JONATHAN-PAD PROVIDED AND NEW UNDERWEAR. ARRIVES TO ROOM. PT AMBULATES BACK TO BED. PT SITTING ON EDGE OF BED. O2 TITRATED BACK TO 5L OXYMASK AND O2 SATS MAINTAIN BETWEEN 90-92%. PT DENIES ANY OTHER NEEDS AT THIS TIME. CALL LIGHT IN REACH.
--- NOTE | 2023-01-18 12:15 | NUR ---
IN TO ATTEMPT IV START. 2 ATTEMPTS WITH NO SUCCESS. PT REQUESTING TO TAKE SHOWER. O2 INCREASED WHILE PT AMBULATES TO RESTROOM AND SHOWERS. PT BACK IN BED. PT REPORTING FEELING SOB AND WANTING TO CATCH HER BREATH. O2 SATS AT 98% TITRATED BACK TO 5L OXYMASK AND PT O2 SATS MAINTAIN BETWEEN 90-94%. NEW GOWN PROVIDED. RT IN ROOM. PT DENIES ANY OTHER NEEDS FROM THIS RN AT THIS TIME. CALL LIGHT IN REACH.
--- NOTE | 2023-01-18 13:46 | NUR ---
IN TO ADMINISTER MEDICATIONS, SEE MAR. VITALS AND I&Os COMPLETE. ASSESSMENT COMPLETE. PT DENIES PAIN AT THIS TIME. ASKED PT IF PT FEELS SOB AND PT STATES "NOT BAD LASTNIGHT." LUNG SOUNDS DIMINISHED AND EXPIRATORY WHEEZE THROUGHOUT ALL LOBED. HEART RATE TACHYCARDIC. PT TITRATED TO 3L OXYMASK WITH O2 SATS BETWEEN 93-95%. PT DENIES ANY OTHER NEEDS AT THIS TIME. CALL LIGHT IN REACH.
--- NOTE | 2023-01-18 15:18 | NUR ---
IN TO ROUND ON PT. PT SITTING UP ON EDGE OF BED. PTs O2 SATS 96%ON 3L OXYMASK. TITRATED PT TO 2L OXYMASK AND O2 SATS MAINTAIN BETWEEN 90-94%. PT DENIES ANY OTHER NEEDS AT THIS TIME. CALL LIGHT IN REACH.
--- NOTE | 2023-01-18 15:45 | NUR ---
IN TO ADMINISTER MEDICATION, SEE MAR. PT TAKES PO MEDICATION WITH NO ISSUES. PT SITTING ON EDGE OF BED. PT DENIES ANY OTHER NEEDS AT THIS TIME. CALL LIGHT IN REACH.
--- NOTE | 2023-01-18 16:50 | NUR ---
IN TO ROUND ON PT. PT SEMI-FOWLERS IN BED AND RESPONDS WHEN ADDRESSED. PT DENIES ANY NEEDS AT THIS TIME. CALL LIGHT IN REACH. O2 SATS 96% ON 2L OXYMASK.
--- NOTE | 2023-01-18 17:30 | NUR ---
IN TO ROUND ON PT. RT IN ROOM. PT SITTING UP IN BED. VITALS AND I&Os COMPLETE. PT REPORTING TOILETING NEEDS. SBA FROM BED TO RESTROOM. O2 INCREASED TO 5L OXYMASK. PT BACK IN BED. PT O2 SATS AT 92%. TITRATED PT TO 2L OXYMASK AND PT MAINTAINS BETWEEN 90-92%. DINNER TRAY PROVIDED. PT DENIES ANY OTHER NEEDS AT THIS TIME. CALL LIGHT IN REACH.
--- NOTE | 2023-01-18 18:29 | NUR ---
IN TO ROUND ON PT. PT SITTING UP IN BED SEMI-FOWLERS. PT REPORTS BEING DONE WITH DINNER TRAY. PT STATES "I HAVE NOT HAD MUCH OF AN APPETITE." TRAY REMOVED. PT ON 2L OXYMASK WITH O2 SATS AT 94%. PT DENIES ANY OTHER NEEDS AT THIS TIME. CALL LIGHT IN REACH.
--- NOTE | 2023-01-18 20:08 | NUR ---
PATIENT IN BED WITH HOB ELEVATED, STATES SHE IS FEELING BETTER THEN YESTERDAY. THE STUFFINESS AND PRESSURE IN NOSE/HEAD IS IMPROVED, STATES SHE IS COUGHING SOME BUT NOTHING COMING UP, VSS, USING OPEN MASK ON 2L/NC AND DENIES ANY INCREASE SOB, RR=20, LUNGS ARE DIMIINISHED WITH SCATTERED EXP. WHEEZE THROUGHOUT. DENIES PAIN, WATCHING TV AND CALL LIGHT WITHIN REACH.
--- NOTE | 2023-01-18 21:06 | NUR ---
PATIENT CALLED AND RN ASSISTED PATIENT TO BR. VOIDED BUT MISSED THE HAT TO MEASURE. OXYGEN TURNED UP FOR ACTIVITY TO 6LITERS/NC. PATIENT TOLERATED WELL, NO DISTRESS NOTED AND RR ONLY ELEVATED SLIGHTLY. ONCE BACK TO BED O2 SATS 93%. OXYGEN TURNED BACK DOWN TO 2 LITERS. PATIENT WITHOUT COMPLAINT, CALL LIGHT IN REACH.
--- NOTE | 2023-01-18 22:05 | NUR ---
PATIENT SITTING UP AT EDGE OF BED WITH PHONE, STATES SHE IS DOING FINE, NO NOTED RESP DISTRESS, CALL LIGHT IN REACH.
--- NOTE | 2023-01-19 00:37 | NUR ---
patient appears comfortable, appears to be asleep on her side, no noted resp distress, RR-20, oxygen on @ 3 liters, O2 sats maintaining >92%. call light withiin reach.
--- NOTE | 2023-01-19 02:00 | NUR ---
PATIENT CONTINUES LYING ON HER SIDE, WITH EYES CLOSED, APPEARS COMFORTABLE, NO NOTED RESP DISTRESS, BREATHING EVEN AND UNLABORED, CONTINOUS PUSE OX STAYING > 92%. CALL LIGHT WITHIN REACH.
--- NOTE | 2023-01-19 04:05 | NUR ---
Patient awake and watching TV, No complaints, pulse ox remains >92%. no noted SOB while resting in bed, coarse nonproductive cough. no complaints of pain, ocygen via open mask at 2liters. call light in hand. Instructed to call if she needs anything.
[2023-01-19 05:48] VITALS: BP 140/77
--- NOTE | 2023-01-19 05:50 | NUR ---
patient slept part of the shift, Awake now watching TV without complaint, no noted resp distress, O2 at 2 liters open mask, sats 93%. Having some coughing tonight offered cough med and declined. continous pulse ox remains on. SOB with exertion. denies any pain. lungs diminished with wheeze. VSS, Up to BR 3 times in the night has missed the hat, so output unmeasured. Call light within reach.
[2023-01-19 07:34] LABS: BASOPHILS 0.1 % (0-2); HEMATOCRIT 47.5 % (35.0-50.0); HEMOGLOBIN 15.7 g/dL (12.0-18.0); LYMPHOCYTES 8.2 % (24-44); MCH 29.3 (27-36); MCV 88.7 fl (81-99); MONOCYTES 5.5 % (0-12); NEUTROPHILS 86.2 % (39-80); PLATELET COUNT 215 K/uL (140-440); RBC 5.36 M/ul (4.3-5.7); RDW 14.9 (10.5-15.0)
[2023-01-19 07:43] LABS: ANION GAP 9.3 (7-21); BUN/CREATININE RATIO 25.58 (6.0-28.6); CALCIUM 8.4 mg/dL (8.5-10.1); CREATININE, SERUM 0.86 mg/dL (0.55-1.02); POTASSIUM 4.3 mmol/L (3.5-5.1)
--- NOTE | 2023-01-19 08:00 | NUR ---
report received from night rn - pt sitting up in bed watching tv, aao. oxymask in place at 2l, switched to nc, sp02 stable on cpox. pt complains of "being poked too much" but otherwise denies any pain or sob. pt refuses ambulation to chair for breakfast, states she has already been up to go to the bathroom. pt encouraged to call for assistance. call light in reach.
--- NOTE | 2023-01-19 09:33 | NUR ---
ASSESSMENT COMPLETE - PT AMBULATES TO BATHROOM TO BRUSH DENTURES, NEEDING 3L 02 FOR THIS WITH MODERATE SOB UPON RETURN TO BED. INSPIRATORY AND EXPIRATORY WHEEZE THROUGHOUT ALL LUNG BUTLER. POC AND LABS DISCUSSED WITH PT, ALL QUESTIONS ANSWERED. PT DENIES NEED FOR FURTHER NICOTINE COVERAGE AT THIS TIME. DENIES PAIN. IV SITE WNL AND FLUSHES WELL DESPITE PT COMPLAINTS OF TENDERNESS. RESPIRATORY TREATMENTS COMPELTED - INSPIRATORY WHEEZE IMPROVED.
[2023-01-19 10:00] VITALS: BP 143/71
--- NOTE | 2023-01-19 10:52 | NUR ---
RN IN ROOM TO ANSWER CALL LIGHT - PT STATES SHE FEELS FLUSHED AND WARM AND LIKE HER "HEART IS FLUTTERING". HR 101 REGULAR, SPO2 91% ON 2L NC, RESPIRATORY ASSESSMENT UNCHANGED. PT LAYING ON SIDE, STATES IT STARTED APPROX 10 MIN AGO. PT DRINKING ESPRESSO DRINK FROM [employer], EDUCATION ON STEROIDS AND CAFFIENE PROVIDED. WILL CONTINUE TO MONITOR.
--- NOTE | 2023-01-19 11:54 | NUR ---
pt assisted to bathroom - requiring titration to 4l 02 while ambulating. back to bed with moderate sob. states that she no longer feels "flush" or "fluttering". denies further needs, call light in reach.
--- NOTE | 2023-01-19 13:39 | NUR ---
pt resting in bed with eyes closed hob elevated. rr even and unlabored with 2l nc, sp02 91%. call light in reach.
[2023-01-19 14:11] VITALS: BP 137/72
--- NOTE | 2023-01-19 14:28 | NUR ---
duoneb tx complete for rt - pt remains on 2l 02 while resting, exp wheeze pronounced throughout all lung garg. pt reports some nicotine craving - lozenges discussed. pt denies further needs. anxious to improve and dc home.
--- NOTE | 2023-01-19 17:43 | NUR ---
RN IN ROOM TO ADDRESS CPOX ALARM - PT SITTING ON EDGE OF BED EATING DINNER AND PLETH NOT READING. PT DENIES SOB. 2L 02 VIA NC. PT DENIES FURTHER NEEDS AT THIS TIME. CALL LIGHT IN REACH.
[2023-01-19 18:45] VITALS: BP 139/59
--- NOTE | 2023-01-19 20:05 | NUR ---
REPORT RECIEVED FROM DAY SHIFT RN. PATIENT COMPLAINS OF HAVING CHEST PAIN THAT RADIATES UNDER HER LEFT BREAST. PATIENT STATES "IT COULD BE ANXIETY". MD NOTIFIED, AND NEW ORDERS ENTERED. VITALS WNL. SATS 88% ON 2L NC, O2 TITRATED TO 3L NC AND 02 INCREASED TO 90%. PATIENT DENIES SHORTNESS OF BREATH. PATIENT HAD NO FURHTER NEEDS AT THIS TIME.
[2023-01-19 20:13] VITALS: BP 153/72
--- NOTE | 2023-01-19 20:39 | NUR ---
PATIENT RESTING IN BED. PATIENT VSS. PATIENT DENIES SHORTNESS OF BREATH. EVENING ASSESSMENT COMPLETED. EXPIRATORY WHEEZES HEARD UPON ASCULTATION THROUGHOUT. IV FLUSHED 10 mL NS PATENT, SALINE LOCKED. PATIENT 90% ON 3L NC. PATIENT INSRUCTED ON HOW TO USE CALL LIGHT. PATIENT STATES NO FURTHER NEEDS.
--- NOTE | 2023-01-19 22:34 | NUR ---
PATIENT RESTING IN BED. PATIENTS SCHEDULED MEDICATION ADMINISTERED, SEE EMAR. NO FURTHER NEEDS, CALL LIGHT IN REACH.
--- NOTE | 2023-01-20 00:13 | NUR ---
ROUNDING ON PATIENT. PATIENT 92% ON 4L NC. PATIENT REPORTS SHE "FEELS SHAKY" FROM NEB TREATMENT. PATIENT DENIES NEEDS AT THIS TIME. PATIENT INSTRUCTED TO USE CALL LIGHT IF SHE NEEDS ANYTHING OR HAS CONCERNS. CALL LIGHT WITHIN REACH.
--- NOTE | 2023-01-20 01:42 | NUR ---
PATIENT RESTING IN BED ON LEFT SIDE, WITH EYES CLOSED. RESPIRATIONS EVEN AND UNLABORED. PATIENTS O2 IS 95% ON 4L NC. THIS RN TITRATED O2 BACK TO 3L NC AND SHE REMAINS AT 93%. CALL LIGHT IN REACH.
--- NOTE | 2023-01-20 03:26 | NUR ---
ROUNDING ON PATIENT. PATIENT RESTING IN BED ON LEFT SIDE. RESPIRATIONS EVEN AND UNLABORED. O2 94% ON 3L NC. CALL LIGHT IN REACH.
[2023-01-20 05:12] VITALS: BP 121/93
[2023-01-20 05:22] LABS: BASOPHILS 0.1 % (0-2); HEMATOCRIT 44.5 % (35.0-50.0); HEMOGLOBIN 14.8 g/dL (12.0-18.0); LYMPHOCYTES 10.4 % (24-44); MCH 29.5 (27-36); MCHC 33.3 g/dl (30-36); MCV 88.5 fl (81-99); NEUTROPHILS 85.5 % (39-80); PLATELET COUNT 197 K/uL (140-440); RBC 5.03 M/ul (4.3-5.7); RDW 14.8 (10.5-15.0)
[2023-01-20 05:32] LABS: ANION GAP 10.3 (7-21); BUN/CREATININE RATIO 27.27 (6.0-28.6); CALCIUM 7.9 mg/dL (8.5-10.1); CREATININE, SERUM 0.88 mg/dL (0.55-1.02); POTASSIUM 4.3 mmol/L (3.5-5.1)
--- NOTE | 2023-01-20 05:55 | EKG ---
[facility] [address] [facility] [place] [address] Signed Sinus rhythm with short ME Otherwise normal ECG When compared with ECG of 17-JAN-2023 15:36, Nonspecific T wave abnormality no longer evident in Inferior leads Nonspecific T wave abnormality no longer evident in Lateral leads Confirmed by ZARA QUINTANA MD ([id number]) on 01/20/2023 5:55:14 AM Electronically Signed By: ZARA QUINTANA 01/20/23 0555 PATIENT NAME: MANINDER MONTES Electrocardiogram DATE OF : 51 PHYSICIAN: ZARA QUINTANA REPORT #: [id number] REPORT IS CONFIDENTIAL AND NOT TO BE RELEASED WITHOUT AUTHORIZATION
--- NOTE | 2023-01-20 05:55 | EKG ---
[facility] [address] [facility] [place], [place] [address] Signed Normal sinus rhythm Normal ECG When compared with ECG of 19-JAN-2023 19:45, (Unconfirmed) No significant change was found Confirmed by ZARA QUINTANA MD ([id number]) on 01/20/2023 5:55:16 AM Electronically Signed By: ZARA QUINTANA 01/20/23 0555 PATIENT NAME: MANINDER MONTES Electrocardiogram DATE OF : 51 PHYSICIAN: ZARA QUINTANA REPORT #: [id number] REPORT IS CONFIDENTIAL AND NOT TO BE RELEASED WITHOUT AUTHORIZATION
--- NOTE | 2023-01-20 06:18 | NUR ---
CALL LIGHT ANSWERED. PATIENT SBA TO TOILET TO VOID. 5L NC WHEN AMBULATING. VS AND I&Os OBAINED AND RECORDED. ASSESSMENT COMPLETED. EXPIRATORY WHEEZES HEARD UPON AUSCULTATION. AFTER RETURNING TO BED, PATIENT TITRATED TO 3L NC AT 91%. PATIENT REPORTS NOT FEELING SOB. NO FURTHER NEEDS. CALL LIGHT IN REACH.
--- NOTE | 2023-01-20 06:58 | NUR ---
PRESCRIBED MEDICATION GIVEN, SEE EMAR. PATIENT FARHEEN WELL. O2 95% ON 3L NC. NO FURTHER NEEDS AT THIS TIME. CALL LIGHT IN REACH.
--- NOTE | 2023-01-20 08:07 | NUR ---
pT SITTING IN BED, RECEIVED NEB TX, ON 3lnc, SATS 92%, DENIES SOB. cpox INPLACE. lUNGS THIGHT AND DIM AT BASES, DENIES SOB OR PAIN AT THIS TIME. CALL LIGHT AND FLUIDS AT HANDS REACH
[2023-01-20 09:14] VITALS: BP 145/65
--- NOTE | 2023-01-20 09:30 | NUR ---
pt assisted to bathroom to shower - 02 titrated to 7l nc for activity. back to bed with fresh gown. recovers to 92% sp02 within 2 minutes, resting 02 requirements remain 3l. daughter updated on poc via phone conversation. call light in reach.
--- NOTE | 2023-01-20 10:00 | NUR ---
AWAKE, SITTING EDGE OF BED VISITING WITH , O2 3LNC, CPOX IN PLACE 92%, CALL LIGHT AT BEDSIDE
--- NOTE | 2023-01-20 11:40 | NUR ---
SITTING EDGE OF BED NO DISTRESS, O2 AND CPOX IN PLACE.CALL LIGHT AT HANDS AREACH
--- NOTE | 2023-01-20 12:54 | NUR ---
pt sitting edge of bed eatin, O2 3LNC, cpox 93%, no distress
[2023-01-20 13:20] VITALS: BP 125/54
--- NOTE | 2023-01-20 13:26 | NUR ---
UP TO BR, O2 2LNC, 93%, O2 INCREAED TO 5L WHEN UP, ON RETURN WAS 90%. O2 DECREAED TO 3L, CPOX 92%, TOLERATED WELL FOR SEVERAL MINUTES. O2 DECREAED TO 2LNC CPOX IN PLACE, WILL CONT TO ASSESS. CALL LIGHT AT BEDSIDE
--- NOTE | 2023-01-20 14:15 | NUR ---
LAYING ON HER LEFT SIDE, O2 2LNC, CPOX 91%, NO DISTRESS. CALL LIGHT AND FLUIDS AT BEDSIDE
--- NOTE | 2023-01-20 15:36 | NUR ---
ON 2LNC, SATS 92%. UP TO BR INDEPENDENT. O2 TITRATED UP TO 5L WHEN UP. VOIDED, BACK TO BED. SATS 92%. O2 TITRATED DOWN TO 2L AGAIN, SATS AT 89-90% RESP 26 AND UP TO 90% AFTER A FEW DEEP BREATHS . O2 TITRATED DOWNTO 1.5L, CPOX IN PLACE, SATS 89-90%. WILL NOTIFY RT AND CONTIUE TO SAFELY TITRATE O2. TOLERATING WELL, DENIES PAIN
--- NOTE | 2023-01-20 17:01 | NUR ---
SITTING EDGE OF BED, NO DISTRESS. O2 1.5L, CPOX AT BEDSIDE SATS 90-91%. TITRATED TO 1L. SATS 89-90% PER CPOX. CALL LIGHT AT HANDS REACH
[2023-01-20 18:04] VITALS: BP 140/75
--- NOTE | 2023-01-20 19:31 | NUR ---
REPORT RECIEVED FROM DAY SHIFT RN. PATIENT SITTING UP IN BED. PATIENTS RESPIRATIONS EVEN AND UNLABORED. PATIENT WAS IN LOW 90s ON 1.5 L NC. PATIENT HAS NO FURTHER NEEDS. CALL LIGHT IN REACH.
[2023-01-20 21:22] VITALS: BP 135/60
--- NOTE | 2023-01-20 22:12 | NUR ---
PATIENT SITTING UP IN BED. VS AND I&Os OBTAINED AND RECORDED. PATIENT MEDICATIONS ADMINISTERED, SEE EMAR. IV FLUSHED AND PATENT. PATIENT UP TO BATHROOM WITH MINIMAL SBA. O2 TITRATED TO 5L NC WHEN AMBULATING AND PATIENT WAS 88% UPON RETURNING TO BED. PATIENT 91% ON 3L NC AT REST. ASSESSMENT COMPLETED. WHEEZES HEARD IN THE BLL, AIR MOVING TROUGHOUT LUNG BUTLER. PATIENT DOES NOT REPORT SOB. PATIENT HAS NO FURTHER NEEDS AT THIS TIME. CALL LIGHT IN REACH.
--- NOTE | 2023-01-20 23:59 | NUR ---
ROUNDING ON PATIENT. PATIENT SITTING UP IN BED RESPIRATIONS EVEN AND UNLABORED. PATIENTS REPORTS NEEDING TO VOID. PATIENT UP TO BATHROOM WITH MINIMAL SBA. PATEINT LOW 90s ON 3L NC. PATIENT HAS NO FURTHER NEEDS. CALL LIGHT IN REACH.
--- NOTE | 2023-01-21 01:50 | NUR ---
CALL LIGHT ANSWERED. PATIENT REPORTS PULLING OUT R HAND IV TIP INTACT. 20G [address] PL[address] IN LEFT AC WITH 2 ATTEMPTS. PATIENT FARHEEN WELL. PATIENT 93% ON 3L NC. PATIENT HAS NO FURTHER REQUESTS. CALL LIGHT IN REACH.
--- NOTE | 2023-01-21 03:44 | NUR ---
CALL LIGHT ANSWERED. PATIENT UP TO VOID WITH MINIMAL SBA. PATIENT BACK TO BED. 02 SAT LOW 90s ON 3L NC. FOCUSED ASSESSMENT COMPLETED. AIR MOVEMENT THROUGHOUT WITH MINIMAL WHEEZES YURY. PATIENT REPORTS FEELING A LITTLE BETTER. PATIENT BEGAN USING ACAPELLA. PATIENT REPORTS NO FURTHER NEEDS. CALL LIGHT IN REACH.
[2023-01-21 05:21] LABS: BASOPHILS 0.1 % (0-2); HEMATOCRIT 44.9 % (35.0-50.0); HEMOGLOBIN 15.1 g/dL (12.0-18.0); LYMPHOCYTES 13.3 % (24-44); MCH 29.8 (27-36); MCHC 33.7 g/dl (30-36); MCV 88.7 fl (81-99); MONOCYTES 3.8 % (0-12); NEUTROPHILS 82.8 % (39-80); PLATELET COUNT 196 K/uL (140-440); RBC 5.06 M/ul (4.3-5.7); RDW 14.8 (10.5-15.0)
[2023-01-21 05:32] LABS: ANION GAP 9.1 (7-21); BUN/CREATININE RATIO 23.33 (6.0-28.6); CALCIUM 7.8 mg/dL (8.5-10.1); CREATININE, SERUM 0.9 mg/dL (0.55-1.02); POTASSIUM 4.1 mmol/L (3.5-5.1)
[2023-01-21 06:38] VITALS: BP 145/77
--- NOTE | 2023-01-21 06:53 | NUR ---
PATIENT RESTING IN BED WITH EYES CLOSED, RESPIRATIONS EVEN AND UNLABORED. MORNING MEDICAIONS ADMISITERED. SEE MAR. VS AND I&Os OBTAINED AND RECORDED. TITRATED PATIENT FROM 3L NC TO 2L NC. O2 SATS >90%. NO FURTHER NEEDS. CALL LIGHT IN REACH.
--- NOTE | 2023-01-21 07:31 | NUR ---
RECIEVE REPORT FROM NURSE. PT IS AWAKE A+O WITH LIGHTS ON IN THE ROOM. NO OTHER CARES NEEDED OR REQUESTED AT THIS TIME. CALL LIGHT WITHIN REACH
--- NOTE | 2023-01-21 07:51 | NUR ---
REPORT RECEIVED FROM TAYLOR JACKSON. PT AWAKE AND LAYING IN BED USING HER PHONE.
--- NOTE | 2023-01-21 09:09 | NUR ---
CHECKED ON PT FOLLOWING SHOWER. STATES SHE FLOODED THE ROOM. EXPLAINED IT HAPPENS SOMETIMES AND SHE SHOULD HAVE CALLED AND WE WOULD HAVE HELPED CLEAN IT UP.
--- NOTE | 2023-01-21 09:42 | NUR ---
EXERCISED MINISTRY OF PRESENCE PT TALKED OF HOPES FOR DISCHARGE AND HALLOWEEN ACTIVITES. PRAYED FOR ORTHODOX OF HEALTH.
[2023-01-21 10:00] VITALS: BP 139/72
--- NOTE | 2023-01-21 11:38 | NUR ---
PT IS SLEEPING. SHE IS ON HER RIGHT SIDE LAYING DOWN IN BED. NO OTHER CARES NEEDED AT THIS TIME CALL LIGHT WITHIN REACH
--- NOTE | 2023-01-21 12:49 | NUR ---
checked on pt and she stated she is not interested in eating at the moment. asked if she wanted me to keep the tray in her room for later and she asked me to take it out. no other cares are needed or requested at this time. call light within reach
--- NOTE | 2023-01-21 14:15 | NUR ---
PATIENT IS IN THE BATHROOM. THE DISHARGE RETINA SUBSPECIALIST WILL RETURN LATER TO DISCUSS THE DC PLAN.
[2023-01-21 14:31] VITALS: BP 152/81
--- NOTE | 2023-01-21 14:59 | NUR ---
ADMININSTERED SCHEDULED MED. PT SITTING ON EDGE OF BED. DENIES CONCERNS. FAMILY IN ROOM.
--- NOTE | 2023-01-21 16:05 | NUR ---
PT IS IN ROOM AT EDGE OF BED. PT ASKED FOR TOILETRIES. WHEN ASKED HOW SHE WAS FEELING PT STATED FINE. NO OTHER CARES NEEDED OR REQUESTED AT THIS TIME. CALL LIGHT WITHIN REACH
--- NOTE | 2023-01-21 17:09 | NUR ---
UR NOTE: MCG 01/20/23 VARIANCE GL DAY 3 01/21/23 VARIANCE GL DAY 3
[2023-01-21 18:43] VITALS: BP 143/68
--- NOTE | 2023-01-21 18:45 | NUR ---
PATIENT SITTING UP ON EDGE OF BED AT THIS TIME. VITALS AND I&O'S CHARTED. CALL LIGHT IN REACH. NO FURTHER NEEDS AT THIS TIME.
--- NOTE | 2023-01-21 19:17 | NUR ---
REPORT RECIEVED FROM DAY SHIFT RN. PATIENT SITTING UP IN BED. 91% ON 1L NC. NO FURTHER NEEDS. CALL LIGHT IN REACH.
[2023-01-21 21:40] VITALS: BP 152/72
--- NOTE | 2023-01-21 22:08 | NUR ---
PATIENT SITTING UP IN BED. VS AND I&Os OBTAINED AND RECORDED. IV FLUSHED AND IS PATENT. EVENING MEDICATIONS ADMINISTERED, SEE MAR. ASSESSMENT COMPLETED. PATIENTS LUNG SOUNDS CLEAR BILATERALLY. PATIENT 91% ON 1L NC. RR 20. PATIENTS RESPIRATIONS ARE EVEN AND UNLABORED. PATIENT HAS NO FURTHER NEEDS. CALL LIGHT IN REACH.
--- NOTE | 2023-01-21 22:29 | NUR ---
PATIENT UP TO WALK THE HALLWAY. [facility]. FARHEEN WELL. PATIENT ON 1L NC WHILE AMBULATING. SAT STAYED BETWEEN 88-92%. PATIENT REPORTS FEELING MIDLY SHORT OF BREATH AFTER AMBULATION BUT STATED "I THINK THIS IS EXPECTED CONSIDERING I HAVE BEEN IN BED FOR SO MANY DAYS". PATIENT BACK IN BED WITH CALL LIGHT IN REACH.
--- NOTE | 2023-01-21 23:16 | NUR ---
CALL LIGHT ANSWERED. PATIENT REQUESTING PRN MEDICATION FOR COUGH. MEDICATION ADMINISTERED, SEE 91% ON 1L NC. PATIENT HAS NO FURTHER NEEDS. CALL LIGHT IN REACH
--- NOTE | 2023-01-22 01:07 | NUR ---
ROUNDING ON PATIENT. PATIENT UP TO BATHROOM TO VOID. PATIENT BACK TO BED. RESPIRATIONS EVEN AND UNLABORED. 91% ON 1L NC. PATIENT HAS NO FURTHER NEEDS. CALL LIGHT IN REACH.
--- NOTE | 2023-01-22 03:20 | NUR ---
PATIENT IN BED RESTING WITH EYES CLOSED. RESPIRATIONS EVEN AND UNLABORED. 02 92% ON 1L NC. CALL LIGHT IN REACH.
[2023-01-22 05:32] LABS: BASOPHILS 0.2 % (0-2); EOSINOPHILS 0.1 % (0-6); HEMATOCRIT 46.4 % (35.0-50.0); HEMOGLOBIN 15.3 g/dL (12.0-18.0); LYMPHOCYTES 13.6 % (24-44); MCH 29.4 (27-36); MCHC 32.9 g/dl (30-36); MCV 89.4 fl (81-99); MONOCYTES 4.1 % (0-12); PLATELET COUNT 171 K/uL (140-440); RBC 5.19 M/ul (4.3-5.7); RDW 14.7 (10.5-15.0)
[2023-01-22 05:41] LABS: ANION GAP 13.2 (7-21); BUN/CREATININE RATIO 22.72 (6.0-28.6); CALCIUM 7.5 mg/dL (8.5-10.1); CREATININE, SERUM 0.88 mg/dL (0.55-1.02); POTASSIUM 4.2 mmol/L (3.5-5.1)
[2023-01-22 06:14] VITALS: BP 149/73
--- NOTE | 2023-01-22 06:33 | NUR ---
PATIENT SITTING UP IN BED. VS AND I&Os OBTAINED AND DOCUMENTED. FRESH WATER PROVIDED. ASSESSMENT COMPLETED. CLEAR LUNG SOUNDS BILATERALLY. PATIENT 89% ON 1L NC. MORNING MEDICATIONS GIVEN, SEE MAR. PATIENT REPORTS NO FURTHER NEEDS. CALL LIGHT IN REACH. RESPIRATIONS EVEN AND UNLABORED.
--- NOTE | 2023-01-22 07:41 | NUR ---
RECEIVED REPORT FROM BENEFIT DIRECTOR RN. PATIENT RESTING ON LEFT SIDE. RESPIRATIONS EVEN AND IS ON 1 L O2 NASAL CANNULA. PATIENT CALL LIGHT AND PERSONAL BELONGINGS ARE WITHIN REACH.
--- NOTE | 2023-01-22 09:45 | NUR ---
PATIENT SITTING ON THE EDGE OF THE BED. 0900 MEDICATIONS ADMINISTERED PER THE EMAR. PATIENT FULL ASSESSMENT COMPLETE AND DOCUMENTED. PATIENT ASKING QUESTIONS ON PORTABLE AND HOME OXYGEN. QUESTIONS ANSWERED. PATIENT CONCERNED ABOUT TRANSPORTING OXYGEN WHEN GOING [employer]. EXPLAINED THAT THERE ARE SMALLER TANKS THAT LAST ABOUT 4 HOURS BUT A HOME TANK WOULD STILL BE NEEDED. PATIENT STATED NO FURTHER NEEDS AT THIS TIME. CALL LIGHT AND PERSONAL BELONGINGS ARE WITHIN REACH.
--- NOTE | 2023-01-22 09:59 | NUR ---
RN CALLED DR. CHRISTIAN. NOTIFIED THAT IRRIGATION TURNED OFF LAST NIGHT AND THE [facility] PLUGGED THIS MORNING. VERBALIZED THAT URINE IS A LIGHT PINK WITH NO CLOTS IN THE CATHER BAG. DR. CHRISTIAN STATED PATIENT WAS STILL CLEAR FOR DISCHARGE.
--- NOTE | 2023-01-22 10:10 | NUR ---
Spoke with pt and she plans on dc today. She completed her 02 qualifier with PT. She and spouse would not to use [facility] for 02. Discussed I will send the correct paperwork when qualifier, notes, and rX completed. Discussed process for 02 delivery and we will need to wait until [facility] tells us their is a compactor driver on the way with the 02 and they will meet them shortly to deliver the 0xygen. They state understanding and deny further needs.
[2023-01-22] MEDS ORDERED: AEROCHAMBER PL1 EACH MISC (10:36)
--- NOTE | 2023-01-22 10:40 | NUR ---
02 qualifier, RX, H&P, progress note face sheet faxed to [place] to order 02. I attempted to call, no answer. Message left asking for a call to let me know when they can deliver the 02 today.
[2023-01-22] MEDS ORDERED: ADVAIR HFA 115-12 GM INH (10:42)
[2023-01-22] MEDS ORDERED: BENZONATATE100 MG PO (10:44)
[2023-01-22] MEDS ORDERED: AZITHROMYCIN500 MG PO (10:45)
[2023-01-22 10:46] VITALS: BP 137/70
[2023-01-22] MEDS ORDERED: PREDNISONE20 MG PO (10:46)
[2023-01-22] MEDS ORDERED: VENTOLIN HFA18 GM INH (10:47)
--- NOTE | 2023-01-22 10:51 | NUR ---
PATIENT SITTING UP ON EDGE OF BED TALKING WITH AT THIS TIME. VITALS AND I&O'S CHARTED. CALL LIGHT IN REACH. NO FURTHER NEEDS AT THIS TIME.
--- NOTE | 2023-01-22 11:30 | NUR ---
Called and spoke with Katie. Orders were received. They are waiting for auth and will call when they jitney driver is leaving for [place] from [place].
[2023-01-22] MEDS ORDERED: SYMBICORT 16010.2 GM INH (11:59)
--- NOTE | 2023-01-22 12:25 | NUR ---
DISCHARGE PAPERS REVIEWED WITH PATIENT. PORTABLE O2 TANK IN ROOM. VSS. PATIENT IS GETTING DRESSED, WILL BE HERE SOON TO TAKE HER HOME. QUESTION/ANSWER COMPLETE.
--- NOTE | 2023-01-22 12:30 | NUR ---
Notified by [place], jukebox route driver is on the way with the 02. Charge nurse and steward/stewardess night notified 02 will be at pts house in 45 min.
--- NOTE | 2023-01-22 12:51 | NUR ---
PATIENT TAKEN TO FRONT DOOR AT 1240
== END 2023-01-22 12:40 | disposition home or self-care (01) | DRG 189 ==
LOC: ED 10:08 → MS 10:09 → ED 01-18 10:08 → MS 01-22 12:40
PROVIDERS: Emergency Medicine; Family Medicine; ADMIT Family Medicine; ATTEND Family Medicine
DX: J96.21 Acute and chronic respiratory failure with hypoxia (principal); J44.1 Chronic obstructive pulmonary disease with (acute) exacerbation; R00.0 Tachycardia, unspecified; E03.9 Hypothyroidism, unspecified; F17.210 Nicotine dependence, cigarettes, uncomplicated; I10 Essential (primary) hypertension; Z98.890 Other specified postprocedural states; Z90.89 Acquired absence of other organs; Z88.2 Allergy status to sulfonamides; Z88.5 Allergy status to narcotic agent; Z88.0 Allergy status to penicillin; Z88.1 Allergy status to other antibiotic agents; Z88.8 Allergy status to other drugs, medicaments and biological substances; Z79.899 Other long term (current) drug therapy; Z79.51 Long term (current) use of inhaled steroids; Z79.890 Hormone replacement therapy; Z90.49 Acquired absence of other specified parts of digestive tract; Z11.52 Encounter for screening for COVID-19
CPT/HCPCS: 36415; 71045; 71260; 80048; 80053; 82803; 83735; 83880; 84100; 84484; 85025; 85379; 87502; 93005; 93010; 94640; 94644; 94645; 94664; 94667; 94668; 94760; 94761; 94762; 96372; 96374; 99285-25; 99406; A9270; C9803; G0378; J1650; J2920; Q9967; U0002

== ENCOUNTER 2024-12-04 19:34 | Emergency (ER) | payer MEDICARE ==
[~2024-12-04] VITALS: Ht 160 cm; Wt 90.0 kg
[~2024-12-04 19:34] MED LIST changes: +ADVAIR HFA 115-12 GM INH; +AEROCHAMBER PL1 EACH MISC; +ALBUTEROL2.5 MG/3 M INH; +BENZONATATE100 MG PO; +LEVOTHYROXINE175 MCG PO; +MULTI VITAMIN1 EACH PO; +SYMBICORT 16010.2 GM INH
[2024-12-04] MEDS ORDERED: CYCLOBENZAPRINE10 MG PO (21:47)
[2024-12-04] MEDS ORDERED: CYCLOBENZAPRINE HCL 10 MG HOME.PACK PO ONE (22:00)
[2024-12-04 22:01] VITALS: BP 159/73
== END 2024-12-04 22:00 | disposition home or self-care (01) ==
LOC: ED 19:34
DX: M79.652 Pain in left thigh (principal); I10 Essential (primary) hypertension; E03.9 Hypothyroidism, unspecified; J44.9 Chronic obstructive pulmonary disease, unspecified; Z88.2 Allergy status to sulfonamides; Z88.5 Allergy status to narcotic agent; Z88.0 Allergy status to penicillin; Z88.8 Allergy status to other drugs, medicaments and biological substances; Z88.1 Allergy status to other antibiotic agents; Z79.890 Hormone replacement therapy; Z79.51 Long term (current) use of inhaled steroids; Z79.899 Other long term (current) drug therapy
CPT/HCPCS: 36415; 85379; 93971; 99283-25

== ENCOUNTER 2025-02-08 01:10 | Emergency (ER) | payer MEDICARE ==
[~2025-02-08] VITALS: Ht 160 cm; Wt 88.6 kg
[~2025-02-08 01:10] MED LIST changes: +CYCLOBENZAPRINE10 MG PO
[2025-02-08 01:32] LABS: BASOPHILS 0.5 % (0.1-1.2); EOSINOPHILS 0.3 % (0.7-5.8); LYMPHOCYTES 28.9 % (19.3-51.7); MCH 28.6 PG (25.6-32.2); MCHC 33.6 g/dL (32.2-35.5); MCV 85.2 fL (79.4-94.8); MONOCYTES 6.5 % (4.7-12.5); NEUTROPHILS 63.4 % (34.0-71.1); RBC 5.83 M/uL (3.93-5.22)
[2025-02-08 02:04] LABS: ALT (SGPT) 25.0 U/L (14-59); AST (SGOT) 22.0 U/L (15-37); GLOMERULAR FILTRATION RATE,EST 79.0 mL/min (>60); PROTEIN, TOTAL 7.4 g/dL (6.4-8.2); UREA NITROGEN 19.0 mg/dL (7-18)
[2025-02-08 03:13] VITALS: BP 181/90
--- NOTE | 2025-02-08 09:55 | EKG ---
[facility] [address] [facility] [place], [place] [address] Signed Normal sinus rhythm Normal ECG When compared with ECG of 19-JAN-2023 22:50, No significant change was found Confirmed by Carey Neri DO ([id number]) on 02/08/2025 9:55:43 AM Electronically Signed By: CAREY NERI DO 02/08/25 0955 PATIENT NAME: MANINDER MONTES Electrocardiogram DATE OF : 51 PHYSICIAN: CAREY NERI DO REPORT #: [id number] REPORT IS CONFIDENTIAL AND NOT TO BE RELEASED WITHOUT AUTHORIZATION
== END 2025-02-08 03:15 | disposition home or self-care (01) ==
LOC: ED 01:10
PROVIDERS: Emergency Medicine
DX: R07.9 Chest pain, unspecified (principal); I10 Essential (primary) hypertension; E03.9 Hypothyroidism, unspecified; J44.9 Chronic obstructive pulmonary disease, unspecified; Z88.2 Allergy status to sulfonamides; Z88.5 Allergy status to narcotic agent; Z88.0 Allergy status to penicillin; Z88.8 Allergy status to other drugs, medicaments and biological substances; Z88.1 Allergy status to other antibiotic agents; Z87.891 Personal history of nicotine dependence
CPT/HCPCS: 36415; 71045; 80053; 83735; 84484; 85025; 93005; 93010; 99285-25